=== PATIENT | male | born 1960 | race African-American/Black ===

== ENCOUNTER → 2019-01-27 | Emergency (ER) | payer SELFPAY, MEDICAID ==
[~2019-01-27] VITALS: Ht 175.3 cm; Wt 72.6 kg
[~2019-01-27] MED LIST: ALBUTEROL SULF8.5 GM INH; DILANTIN100 MG ORAL; LORazepam 1mg tab ORAL ONE; Phenytoin 100mg cap ORAL ONE
[2019-01-27 17:18] VITALS: BP 171/103
--- NOTE | 2019-01-27 17:42 | Emergency Room Report ---
History of Present Illness General Chief Complaint: Medical Clearance Source: Patient Present Illness HPI 59 YO Male presents to the ED for medical clearance for incarceration. Pt. c/o needing medication refill. He reports hx of sz, asthma, and HTN. He is out of his sz medication. States he takes 300mg BID. He is not sure the name or dosage of his HTN medications. " little red pills" is all he can detail. Pt. uses albuterol PRN. Pt .is a current smoker and reports tobacco and THC use. Denies CP, Palpitations, LOC, AMS, dizziness, Changes in Vision, Sensation, paresthesias, or a sudden severe headache. Pt. denies N/V. He denies SOB, cough or wheezing. Pt. denies fevers or chills. He denies symptoms at this time. He denies pain. He denies open wounds or bleeding. Allergies: Coded Allergies: No Known Allergies (Unverified , 01/27/19) Patient History Past Medical History: see triage record Past Surgical History: none Pertinent Family History: none Social History: Reports: alcohol use, drug use - THC Reviewed Nursing Documentation: PMH: Agreed; PSxH: Agreed Nursing Documentation-PMH Past Medical History: No History, Except For Hx Asthma: Yes Hx Seizures: Yes Review of Systems All Other Systems: negative except mentioned in HPI Physical Exam Vital Signs Date Time Temp Pulse Resp B/P (MAP) Pulse Ox O2 Delivery O2 Flow Rate FiO2 01/27/19 17:18 99.0 109 20 171/103 (125) 98 Sp02 EP Interpretation: reviewed, normal General Appearance: no apparent distress, alert, GCS 15, non-toxic Head: normocephalic, atraumatic Eyes: bilateral eye normal inspection, bilateral eye PERRL ENT: hearing grossly normal, normal voice Neck: full range of motion, no bony tend Respiratory: chest non-tender, lungs clear, normal breath sounds, speaking full sentences, wheezing - scant expiratory wheezes Cardiovascular #1: regular rate, rhythm, normal capillary refill, tachycardia - mild Gastrointestinal: normal bowel sounds, non tender, soft Musculoskeletal: back normal, gait/station normal, normal range of motion, non- tender Neurologic: alert, oriented x3, responsive, motor strength/tone normal, sensory intact, normal gait, speech normal, grossly normal Psychiatric: judgement/insight normal Skin: no rash Lymphatic: no adenopathy Medical Decision Making PA Attestation Dr. Little is my supervising Physician whom patient management has been discussed with. Diagnostic Impression: Primary Impression: Medical clearance for incarceration Additional Impressions: History of seizure disorder History of hypertension History of asthma ER Course 59 YO Male presents to the ED for medical clearance for incarceration. Pt. c/o needing medication refill. He reports hx of sz, asthma, and HTN. He is out of his sz medication. States he takes 300mg BID. He is not sure the name or dosage of his HTN medications. " little red pills" is all he can detail. Pt. uses albuterol PRN. Pt .is a current smoker and reports tobacco and THC use. Denies CP, Palpitations, LOC, AMS, dizziness, Changes in Vision, Sensation, paresthesias, or a sudden severe headache. Pt. denies N/V. He denies SOB, cough or wheezing. Pt. denies fevers or chills. He denies symptoms at this time. He denies pain. He denies open wounds or bleeding. Ddx considered but are not limited to Head Trauma, SD, ACS, SI/HI, URI, SAH, Fractures, Dislocations, Taser barbs, Abrasions, seizure, HTN urgency/emergency , asthma exacerbation just to name a few. Vital signs: PT. has elevated BP reading and is mildly tachycardic at 109, pt. is afebrile H&PE are most consistent with: normal limited physical examination. - no agitation or tremors. --Pt. with ETOH dependence hx. will be treated for possible w/d symptoms. ORDERS: none required at this time, the diagnosis is clinical ED INTERVENTIONS: - pt. declines nebulized tx. -1mg Ativan -300mg Dilantin PO After above interventions pt. BP and HR appropriately reduced. Pt. continues to have no other complaints at this time. -I do not identify an emergent condition at this time. With current presentation , pt. is stable for close outpatient follow up and conservative treatment. D/ w pt. to return promptly to ED with worsening or new symptoms.- Pt. verbalizes' understanding and agreement with proposed treatment plan. DISCHARGE: At this time pt. is stable for d/c to law enforcement. Will provide printed patient care instructions, and any necessary prescriptions. Care plan and follow up instructions have been discussed with the patient prior to discharge. Last Vital Signs Date Time Temp Pulse Resp B/P (MAP) Pulse Ox O2 Delivery O2 Flow Rate FiO2 01/27/19 17:18 99.0 109 20 171/103 (125) 98 Disposition: HOME, SELF-CARE Condition: Stable Scripts Albuterol Sulfate* (ALBUTEROL SULFATE MDI*) 8.5 Gm Hfa.aer.ad 2 PUFF INH Q3H, #1 INH 0 Refills Prov: Jennifer Baxter 01/27/19 Phenytoin Sodium Extended* (DILANTIN*) 100 Mg Capsule 300 MG ORAL BID, #60 CAP Prov: Jennifer Baxter 01/27/19 Departure Forms: [facility] Clearance Patient Instructions: Medical Screening Exam Additional Instructions: Take medications as directed. unable to refill your HTN medication as the medication name and dosage is unknown. Follow up with a Primary Care Provider in 3-5 days, even if your symptoms have resolved. --Please review list of primary care clinics, if you do not already have a primary care provider Return sooner to ED if new symptoms occur, or current symptoms become worse. - Please note that this Emergency Department Report was dictated using Community Veterinary Partnersoptician manager technology software, occasionally this can lead to erroneous entry secondary to interpretation by the dictation equipment. Jennifer Baxter Jan 27, 2019 17:42
== END ==
LOC: EMR 17:46
DX: G40.909 Epilepsy, unspecified, not intractable, without status epilepticus (principal); I10 Essential (primary) hypertension; J45.909 Unspecified asthma, uncomplicated; F12.10 Cannabis abuse, uncomplicated
CPT/HCPCS: 99282

== ENCOUNTER 2019-11-15 15:35 | Emergency (ER) | payer SELFPAY, MEDICAID ==
[~2019-11-15] VITALS: Ht 175.3 cm; Wt 68.0 kg
[~2019-11-15 15:35] MED LIST changes: -LORazepam 1mg tab ORAL ONE; -Phenytoin 100mg cap ORAL ONE
[2019-11-15 16:01] VITALS: BP 155/95
--- NOTE | 2019-11-15 16:01 | NUR ---
ED Nurse Note:pt. was brought in by [employer] officers for med refills and medical clearance for booking
--- NOTE | 2019-11-15 16:12 | Emergency Room Report ---
History of Present Illness General Chief Complaint: Medical Clearance Source: Patient Present Illness HPI 59 YO male presents to the ED for medical clearance for incarceration. PT C/O being out of his seizure medications x 3 months. reports last sz was 2 months ago. States he takes dilantin 200mg BID. Pt. also requests refill of albuterol for his asthma. Pt. denies cough, wheezing or SOB. He denies fevers or chills. Denies open wounds or bleeding. Pt. Denies CP or palpitations. He denies FOX, Nausea or vomiting. No other medical complaints. He denies having any current symptoms. Denies pain. Allergies: Coded Allergies: No Known Allergies (Unverified , 01/27/19) COVID-19 Screening Contact w/high risk pt: No Experienced COVID-19 symptoms?: No COVID-19 Testing performed SYSTEM SUPPORT DEVELOPER: No Patient History Past Medical History: see triage record, asthma Past Surgical History: none Pertinent Family History: none Social History: Reports: smoking Reviewed Nursing Documentation: PMH: Agreed; PSxH: Agreed Nursing Documentation-PMH Past Medical History: No History, Except For Hx Asthma: Yes Hx Seizures: Yes Review of Systems All Other Systems: negative except mentioned in HPI Physical Exam Vital Signs Date Time Temp Pulse Resp B/P (MAP) Pulse Ox O2 Delivery O2 Flow Rate FiO2 11/15/19 15:44 98.8 88 15 155/95 (115) 95 Room Air Sp02 EP Interpretation: reviewed, normal General Appearance: no apparent distress, alert, GCS 15, non-toxic Head: normocephalic, atraumatic Eyes: bilateral eye normal inspection, bilateral eye PERRL ENT: hearing grossly normal, normal pharynx, normal voice Neck: full range of motion Respiratory: chest non-tender, lungs clear, normal breath sounds, no respiratory distress, no accessory muscle use, no wheezing, speaking full sentences Cardiovascular #1: regular rate, rhythm, no edema, normal capillary refill Gastrointestinal: normal bowel sounds, non tender, soft Musculoskeletal: normal range of motion, gait/station normal, non-tender Neurologic: alert, motor strength/tone normal, oriented x3, sensory intact, responsive, speech normal Psychiatric: judgement/insight normal Skin: no rash, normal color Medical Decision Making PA Attestation Dr. Crowe Is my supervising Physician whom patient management has been discussed with. Diagnostic Impression: Primary Impression: Medical clearance for incarceration Additional Impression: Medication refill ER Course 59 YO male presents to the ED for medical clearance for incarceration. PT C/O being out of his seizure medications x 3 months. reports last sz was 2 months ago. States he takes dilantin 200mg BID. Pt. also requests refill of albuterol for his asthma. Pt. denies cough, wheezing or SOB. He denies fevers or chills. Denies open wounds or bleeding. Pt. Denies CP or palpitations. He denies FOX, Nausea or vomiting. No other medical complaints. He denies having any current symptoms. Ddx considered but are not limited to Head Trauma, OR, ACS, SI/HI, URI, SAH, Fractures, Dislocations, Tazer barbs, Abrasions. Vital signs: are WNL, pt. is afebrile H&PE are most consistent with: normal limited physical examination. NAD, non- toxic in appearance, non-hypoxic. requesting medication refill of dilantin and albuterol. ORDERS: none required at this time, the diagnosis is clinical ED INTERVENTIONS: None required at this time. -I do not identify an emergent condition at this time. With current presentation , pt. is stable for close outpatient follow up and conservative treatment. D/ w pt. to return promptly to ED with worsening or new symptoms.- Pt. verbalizes' understanding and agreement with proposed treatment plan. DISCHARGE: At this time pt. is stable for d/c to law enforcement. Will provide printed patient care instructions, and any necessary prescriptions. Care plan and follow up instructions have been discussed with the patient prior to discharge. Last Vital Signs Date Time Temp Pulse Resp B/P (MAP) Pulse Ox O2 Delivery O2 Flow Rate FiO2 11/15/19 15:44 98.8 88 15 155/95 (115) 95 Room Air Disposition: LAW ENFORCEMENT IN CUST Condition: Stable Scripts Albuterol Sulfate* (Albuterol Sulfate Hfa*) 8.5 Gm Hfa.aer.ad 2 PUFF INH Q6H, #1 INH Prov: Jennifer Baxter 11/15/19 Phenytoin Sodium Extended* (DILANTIN*) 100 Mg Capsule 200 MG ORAL TWICE A DAY for 30 Days, #60 CAP 0 Refills Prov: Jennifer Baxter 7/22/20 Referrals: Franci Stubbs. [facility] Departure Forms: Nursing Home Clearance Patient Instructions: Medical Screening Exam Additional Instructions: ~ ~ An emergent medical condition has not been identified based on this patients presentation, exam and any necessary testing/imaging. The patient is determined to be stable for outpatient follow-up and management of symptoms by a primary care provider. Take medications as directed. Follow up with a Primary Care Provider in 3-5 days, even if your symptoms have resolved. --Please review list of primary care clinics, if you do not already have a primary care provider Return sooner to ED if new symptoms occur, or current symptoms become worse. - Please note that this Emergency Department Report was dictated using [employer] Box Overstocksback order clerk technology software, occasionally this can lead to erroneous entry secondary to interpretation by the dictation equipment. Jennifer Baxter Nov 15, 2019 16:12
[2019-11-15] MEDS ORDERED: ALBUTEROL SULF8.5 G1 INH (16:14)
[2019-11-15] MEDS ORDERED: DILANTIN100 MG ORAL (16:14)
--- NOTE | 2019-11-15 16:25 | NUR ---
ED Nurse Note:pt. was cleared for d/c by ER REBECCA NICOLE officer received d/c instructions with prescriptions and [facility] clearance note and pt. was taken in custody out of ER
== END 2019-11-15 16:25 ==
LOC: EMR 16:15
DX: G40.909 Epilepsy, unspecified, not intractable, without status epilepticus (principal); Z76.0 Encounter for issue of repeat prescription
CPT/HCPCS: 99282

== ENCOUNTER 2020-02-03 13:53 | Emergency (ER) | payer SELFPAY, MEDICAID ==
[~2020-02-03] VITALS: Ht 180.3 cm; Wt 65.8 kg
[~2020-02-03 13:53] MED LIST changes: +ALBUTEROL SULF8.5 G1 INH
[2020-02-03 13:58] VITALS: BP 158/104
--- NOTE | 2020-02-03 14:08 | NUR ---
ED Nurse Note: Patient brought in by ambulance for medical screening. Pt c/o left knee pain with no hx of trauma. Pt is under [employer] custody. Pt is AAOx4 and ambulatory.
[2020-02-03] MEDS ORDERED: Cephalexin 500mg cap ORAL ONE (15:00)
[2020-02-03] MEDS ORDERED: Phenytoin 100mg cap ORAL ONE (15:00)
--- NOTE | 2020-02-03 15:10 | NUR ---
ED Nurse Note: signal operator technical with the patient.
--- NOTE | 2020-02-03 15:26 | Emergency Room Report ---
History of Present Illness General Chief Complaint: Medical Clearance Present Illness HPI 60-year-old male with history of seizures and asthma presents to the emergency department for medical clearance for incarceration. Patient reports last seizure was 1 week ago. He states he is currently out of his medications for his chronic conditions. Patient states last time he had any Dilantin was 3 days ago. He reports he takes 200 mg twice a day. Patient also reports that he requires albuterol inhaler refill as well. Patient denies chest pain, shortness of breath, wheezing, open wounds or bleeding. He does report some 5 out of 10 severity tenderness to the anterior left knee with swelling, bruising status post mechanical trip and fall 2 days ago. Patient denies open wounds or bleeding. He reports he is able to bear weight. He reports he is able to bend his knee. Patient reports some tenderness with palpation. He states he is up -to-date with vaccinations including tetanus. He denies fevers or chills. Allergies: Coded Allergies: No Known Allergies (Unverified , 01/27/19) COVID-19 Screening Contact w/high risk pt: No Experienced COVID-19 symptoms?: No COVID-19 Testing performed LADDER OPERATOR: No Patient History Past Medical History: see triage record Past Surgical History: none Pertinent Family History: none Immunizations: UTD Reviewed Nursing Documentation: PMH: Agreed; PSxH: Agreed Nursing Documentation-PMH Hx Asthma: Yes Hx Seizures: Yes Review of Systems All Other Systems: negative except mentioned in HPI Physical Exam Vital Signs Date Time Temp Pulse Resp B/P (MAP) Pulse Ox O2 Delivery O2 Flow Rate FiO2 02/03/20 13:58 98.4 84 22 158/104 (122) 100 Room Air Sp02 EP Interpretation: reviewed, normal General Appearance: no apparent distress, alert, GCS 15, non-toxic Head: normocephalic, atraumatic Eyes: bilateral eye normal inspection, bilateral eye PERRL ENT: hearing grossly normal, normal voice Neck: full range of motion Respiratory: chest non-tender, lungs clear, normal breath sounds, no wheezing, speaking full sentences Cardiovascular #1: regular rate, rhythm, no edema, normal capillary refill Gastrointestinal: normal bowel sounds, non tender, soft, no guarding Musculoskeletal: back normal, normal range of motion, no calf tenderness, gait/station normal, tender - proximal portion of the anterior left knee, swelling - proximal portion of the anterior left knee, some erythema and warmth noted. the the joint does not appear to be involved, FROM. Pain only with palpation. swelling is not circumferential or involving the entire knee joint. NO post. palpable pulsatile mass. , other - Pt. ambulatory and able to bear weight without assitance or grimmacing. Neurologic: alert, motor strength/tone normal, oriented x3, sensory intact, responsive, speech normal Psychiatric: judgement/insight normal Skin: other - erythema and warmth with some mild swelling to the proximal portion of the anterior left knee. Lymphatic: no adenopathy Medical Decision Making PA Attestation Dr. Locke is my supervising Physician whom patient management has been discussed with. Diagnostic Impression: Primary Impression: Cellulitis of knee, left Additional Impressions: Contusion of left knee, initial encounter History of asthma History of seizure disorder Medication refill Medical clearance for incarceration ER Course 60-year-old male with history of seizures and asthma presents to the emergency department for medical clearance for incarceration. Patient reports last seizure was 1 week ago. He states he is currently out of his medications for his chronic conditions. Patient states last time he had any Dilantin was 3 days ago. He reports he takes 200 mg twice a day. Patient also reports that he requires albuterol inhaler refill as well. Patient denies chest pain, shortness of breath, wheezing, open wounds or bleeding. He does report some 5 out of 10 severity tenderness to the anterior left knee with swelling, bruising status post mechanical trip and fall 2 days ago. Patient denies open wounds or bleeding. He reports he is able to bear weight. He reports he is able to bend his knee. Patient reports some tenderness with palpation. He states he is up-to-date with vaccinations including tetanus. He denies fevers or chills. Ddx considered but are not limited to Head Trauma, [place], ACS, SI/HI, URI, SAH, Fractures, Dislocations, Tazer barbs, Abrasions, cellulitis, fracture, contusion, sprain, septic joint just name a few. --Pt. without hx of gout or pseudo gout. Vital signs: are WNL, pt. is afebrile H&PE are most consistent with: TTP, and erythema to the ST of the proximal po rtion of the anterior Left knee. FROM without pain. some palpable warmth. lungs are CTA, patient is not in respiratory distress he is nontoxic in appearance he is ambulatory and able to bear weight on his own without assistance. Patient does not demonstrate acute abdomen on exam. ORDERS: -X-ray Left Knee ED INTERVENTIONS: -Keflex 500mg pO -Dilantin 400mg PO - Tylenol 650Mg PO Mic wrap applied to the left knee by electrical assembly technician. Pt. remains neurovascularly intact. DISCHARGE: At this time pt. is stable for d/c to law enforcement. Will provide printed patient care instructions, and any necessary prescriptions. Care plan and follow up instructions have been discussed with the patient prior to discharge. Other X-Ray Diagnostic Results Other X-Ray Diagnostic Results : X-Ray ordered: Left knee x-ray # of Views/Limited Vs Complete: 3 View Indication: Pain EP Interpretation: Yes BONNIE Xray: Interpretation reviewed, by supervising MD, and agrees with findings. Interpretation: no dislocation, no fractures, other - ST swelling above patella Impression: No acute disease Electronically Signed by: Jennifer Baxter PA-C Last Vital Signs Date Time Temp Pulse Resp B/P (MAP) Pulse Ox O2 Delivery O2 Flow Rate FiO2 02/03/20 14:04 84 22 Room Air 02/03/20 13:58 98.4 158/104 100 Status: improved Disposition: LAW ENFORCEMENT IN CUST Condition: Stable Scripts Albuterol Sulfate* (Albuterol Sulfate Hfa*) 8.5 Gm Hfa.aer.ad 2 PUFF INH Q4H, #1 INH Prov: Jennifer Baxter 02/03/20 Phenytoin Sodium Extended* (DILANTIN*) 100 Mg Capsule 200 MG ORAL TWICE A DAY for 30 Days, #60 CAP 0 Refills Prov: Jennifer Baxter 02/03/20 Cephalexin* (KEFLEX*) 500 Mg Capsule 500 MG ORAL EVERY 12 HOURS for 7 Days, #14 CAP 0 Refills Prov: Jennifer Baxter 02/03/20 [facility]errals: [facility] (PCP) Departure Forms: Long-Term Clearance Patient Instructions: Cellulitis, [id number], Contusion, [id number], Medical Screening Exam Additional Instructions: Take medications as directed. Follow up with a Primary Care Provider in 3-5 days, even if your symptoms have resolved. --Please review list of primary care clinics, if you do not already have a primary care provider Return sooner to ED if new symptoms occur, or current symptoms become worse. - Please note that this Emergency Department Report was dictated using Dealer[employer]atercreative services coordinator technology software, occasionally this can lead to erroneous entry secondary to interpretation by the dictation equipment. Jennifer Baxter Feb 03, 2020 15:26
[2020-02-03] MEDS ORDERED: CEPHALEXIN500 MG ORAL (15:27)
[2020-02-03] MEDS ORDERED: ALBUTEROL SULF8.5 G1 INH (15:27)
[2020-02-03] MEDS ORDERED: DILANTIN100 MG ORAL (15:27)
[2020-02-03 16:16] VITALS: BP 145/90
--- NOTE | 2020-02-03 16:16 | NUR ---
ER DISCHARGE NOTE: Patient is cleared to be discharged per PA, pt is aox4, on room air, with stable vital signs. pt was given dc and prescription instructions, pt was able to verbalize understanding, pt id band removed. pt is able to ambulate with steady gait. pt took all belongings and left with police officers.
--- NOTE | 2020-02-05 06:19 | Diagnostic Imaging Report ---
EXAM: XR Left Knee, 3 Views CLINICAL HISTORY: PAIN TECHNIQUE: Three views of the left knee. COMPARISON: No relevant imaging studies available. FINDINGS: There is mild prepatellar soft tissue swelling. No radiopaque foreign body is identified. No fracture or malalignment. Tricompartmental degenerative changes are present. Healed left proximal tibial fracture is seen. Vascular calcifications are noted. IMPRESSION: Mild prepatellar soft tissue swelling with no acute skeletal findings.
== END 2020-02-03 16:16 ==
LOC: EMR 14:22
DX: L03.116 Cellulitis of left lower limb (principal); S80.02XA Contusion of left knee, initial encounter; G40.909 Epilepsy, unspecified, not intractable, without status epilepticus; Z76.0 Encounter for issue of repeat prescription; J45.909 Unspecified asthma, uncomplicated; W01.0XXA Fall on same level from slipping, tripping and stumbling without subsequent striking against object, initial encounter; Y92.9 Unspecified place or not applicable
CPT/HCPCS: 99283

== ENCOUNTER 2020-04-03 17:42 | Emergency (ER) | payer SELFPAY, MEDICAID ==
[~2020-04-03] VITALS: Ht 175.3 cm; Wt 72.6 kg
[~2020-04-03 17:42] MED LIST changes: +CEPHALEXIN500 MG ORAL
--- NOTE | 2020-04-03 18:06 | Emergency Room Report ---
History of Present Illness General Chief Complaint: Medical Clearance Source: Patient Present Illness HPI 60-year-old male with history of seizure disorder, asthma brought in by [facility] for medical clearance. Patient is a status post alcohol intoxication. Reports that he took his Dilantin earlier today however does not have it on him and is requesting a refill on Dilantin as well as albuterol. D enies any recent seizure activity. Also complains of chronic left leg pain. Patient is able to walk, pain, and has limited motion of the affected area. Is requesting some medication for pain. Patient gait is slightly unsteady due to alcohol intoxication. Denies other drug use. Denies taking any blood thinners. Denies head injury or loss of consciousness Allergies: Coded Allergies: No Known Allergies (Unverified , 01/27/19) COVID-19 Screening Contact w/high risk pt: No Experienced COVID-19 symptoms?: No COVID-19 Testing performed MEDICAL ART THERAPIST: No Patient History Past Medical History: see triage record Past Surgical History: none Pertinent Family History: none Immunizations: UTD Reviewed Nursing Documentation: PMH: Agreed; PSxH: Agreed Nursing Documentation-PMH Past Medical History: No History, Except For Hx Asthma: Yes Hx Seizures: Yes Review of Systems All Other Systems: negative except mentioned in HPI Physical Exam Vital Signs Date Time Temp Pulse Resp B/P (MAP) Pulse Ox O2 Delivery O2 Flow Rate FiO2 04/03/20 17:55 98.1 90 18 144/96 (112) 98 Room Air Sp02 EP Interpretation: reviewed, normal General Appearance: no apparent distress, alert Head: normocephalic, atraumatic Eyes: bilateral eye normal inspection, bilateral eye PERRL ENT: hearing grossly normal, no angioedema, normal voice Neck: full range of motion, supple/symm/no masses Respiratory: chest non-tender, lungs clear, normal breath sounds, no retraction, speaking full sentences Cardiovascular #1: regular rate, rhythm, no edema Gastrointestinal: non tender, soft Rectal: deferred Genitourinary: no CVA tenderness Musculoskeletal: back normal, pelvis stable, non-tender Neurologic: alert, motor strength/tone normal, oriented x3, sensory intact, responsive, speech normal Psychiatric: judgement/insight normal, memory normal, mood/affect normal, no suicidal/homicidal ideation Skin: no rash Lymphatic: no adenopathy Medical Decision Making PA Attestation All my diagnosis and treatment plans were reviewed ad discussed with my supervising physician Dr. Little Diagnostic Impression: Primary Impression: Medical clearance for incarceration Additional Impressions: Medication refill Seizure Asthma Chronic leg pain ER Course 60-year-old male with history of seizure disorder, asthma brought in by [facility] for medical clearance. Patient is a status post alcohol intoxication. Reports that he took his Dilantin earlier today however does not have it on him and is requesting a refill on Dilantin as well as albuterol. Denies any recent seizure activity. Also complains of chronic left leg pain. Patient is able to walk, pain, and has limited motion of the affected area. Is requesting some medication for pain. Patient gait is slightly unsteady due to alcohol intoxication. Denies other drug use. Denies taking any blood thinners. Denies head injury or loss of consciousness Ddx considered but are not limited to: Tonic-clonic seizure, seizure activity, cerebral hematoma, medication refill seizure, asthma Vital signs: are WNL, pt. is afebrile H&PE are most consistent with:, Medical clearance for incarceration, medication refill for seizure, asthma, chronic pain ORDERS: Motrin, Dilantin, albuterol ED INTERVENTIONS: Patient refuses any medication at ED. DISCHARGE: At this time pt. is stable for d/c to home. Will provide printed patient care instructions, and any necessary prescriptions. Care plan and follow up instructions have been discussed with the patient prior to discharge. Patient take medication as directed, follow primary care provider, if worsening symptoms return to the emergency room. At this time patient appears to be atraumatic, and denies any recent seizure activity at this time no further evaluation is needed however patient to return to the emergency room if worsening symptoms. Last Vital Signs Date Time Temp Pulse Resp B/P (MAP) Pulse Ox O2 Delivery O2 Flow Rate FiO2 04/03/20 17:55 98.1 90 18 144/96 (112) 98 Room Air Disposition: LAW ENFORCEMENT IN CUST Condition: Stable Scripts Ibuprofen* (MOTRIN*) 400 Mg Tablet 400 MG ORAL Q8H, #30 TAB 0 Refills Prov: Loco Hernandez 04/03/20 Albuterol Sulfate (VENTOLIN HFA) 18 Gm Hfa.aer.ad 2 PUFFS INH EVERY 6 HOURS, #18 GM 0 Refills Prov: Loco Hernandez 04/03/20 Phenytoin Sodium Extended* (DILANTIN*) 100 Mg Capsule 200 MG ORAL TWICE A DAY for 30 Days, #60 CAP 0 Refills Prov: Loco Hernandez 04/03/20 Patient Instructions: Asthma, Adult, Chronic Pain, Seizure, Adult, [id number] Additional Instructions: Take medication as directed, follow-up with your primary care provider, if worsening symptoms return to the emergency room. Avoid drinking alcohol. Loco Hernandez Apr 03, 2020 18:06
[2020-04-03] MEDS ORDERED: VENTOLIN HFA18 GM INH (18:07)
[2020-04-03] MEDS ORDERED: IBUPROFEN400 MG ORAL (18:07)
[2020-04-03] MEDS ORDERED: DILANTIN100 MG ORAL (18:07)
--- NOTE | 2020-04-03 18:08 | NUR ---
ED Nurse Note: Pt brought in by [employer] officer for medical clearance. Pt reports leg pain. Denies any other symptoms. Respirations even and unlabored on room air. Pt reports alcohol use today. Vitals stable as documented. A+Ox4, speaking in complete sentences.
[2020-04-03 18:09] VITALS: BP 138/89
[2020-04-03 18:15] VITALS: BP 128/82
--- NOTE | 2020-04-03 18:15 | NUR ---
ED Nurse Note: Pt cleared by health care Provider for discharge. DC instructions/prescription were given and explained to pt and deputy and they verbalized understanding of teachings. All medical deviecs such as ID band removed. Pt is AAO x4, ambulatory and left with all personal belongings. Pt leaves with deputy in custody
== END 2020-04-03 18:15 ==
LOC: EMR 18:05
DX: Z02.89 Encounter for other administrative examinations (principal); Z76.0 Encounter for issue of repeat prescription; G40.909 Epilepsy, unspecified, not intractable, without status epilepticus; J45.909 Unspecified asthma, uncomplicated; G89.29 Other chronic pain; M79.605 Pain in left leg; F10.129 Alcohol abuse with intoxication, unspecified
CPT/HCPCS: 99282